=== PATIENT | female | born 1985 | race Caucasian/White ===

== ENCOUNTER 2020-07-25 19:47 | Emergency (ER) | payer SELFPAY ==
[2020-07-25 20:40] LABS: #Basophils 0.1 thou/uL (0.0-0.2); #Eosinphils 0.2 thou/uL (0.0-0.7); #Lymphocytes 4.8 thou/uL (1.20-3.40); #Monocytes 0.9 thou/uL (0.11-0.59); #Neutrophils 9.4 thou/uL (1.40-6.50); %Basophils 0.9 % (0.0-1.0); %Lymphocytes 31.4 % (21.0-51.0); %Monocytes 5.6 % (0.0-10.0); Hemoglobin 14.6 g/dL (12.0-16.0); Mean Corpuscular HGB CONC 31.3 g/dL (32.0-36.0); Mean Corpuscular Hemoglobin 30.2 pg (27.0-31.0); Mean Corpuscular Volume 96.3 fL (78.0-98.0); Mean Platelet Volume 10.1 fL (7.4-10.4); Platelet Count 137 thou/uL (130-400); RBC Distribution Width 12.2 % (11.5-14.5); Red Blood Cell (RBC) Count 4.83 mill/uL (4.20-5.40); White Blood Cell (WBC) Count 15.4 thou/uL (4.8-10.8)
[2020-07-25 20:53] LABS: Bilirubin Negative (Negative); Blood, Urine Small (Negative); Clarity Clear (Clear); Glucose, Urine (Dipstick) >=1000 mg/dL (Negative); Ketone, Urine Negative (Negative); Leukocyte Negative (Negative); Nitrite Negative (Negative); Protein, Urine (Dipstick) Negative (Neg-Trace); Specific Gravity, Urine 1.015 (1.005-1.030); Urobilinogen 0.2 mg/dL (Less than 2); pH, Urine 6.5 (5.0-9.0)
[2020-07-25 20:54] LABS: Pregnancy Test - Urine (BHCG) Negative (Negative); Pregu Control Background? CLEAR/WHITE (CLR/WHITE); Pregu Control Bar Appear? YES (CONTROL BAR); Specific Gravity 1.015 (1.002-1.036)
[2020-07-25 21:01] LABS: ALT (SGPT) 34 U/L (8-55); AST (SGOT) 17 U/L (5-34); Albumin 4.6 g/dL (3.5-5.0); Alkaline Phosphatase 87 U/L (40-110); Anion Gap 19 mmol/L (10-20); BUN (Urea Nitrogen) 12 mg/dL (7.0-18.7); Bilirubin, Total 0.3 mg/dL (0.2-1.2); Calc. Creatinine Clearance 0 mL/min (70-130); Calcium 10.4 mg/dL (7.8-10.44); Carbon Dioxide 20 mmol/L (22-29); Chloride 102 mmol/L (98-107); Estimated GFR-MDRD 77; Glucose 220 mg/dL (70-105); Potassium 4.3 mmol/L (3.5-5.1); Protein, Total 7.6 g/dL (6.0-8.3); Sodium 137 mmol/L (136-145)
[2020-07-25] MEDS ORDERED: Morphine 4 MG/ML VIAL ONE ×2 (21:04→22:17)
[2020-07-25] MEDS ORDERED: Ondansetron PF 4 MG/2 ML Vial ONE (21:04)
[2020-07-25] MEDS ORDERED: metroNIDAZOLE 500 MG/100 ML BAG ONE (21:04)
[2020-07-25] MEDS ORDERED: Sodium Chloride 0.9% 1,000 ML ONE (21:04)
[2020-07-25 21:14] LABS: RBC/HPF 0-3 HPF (0-3); Squamous Epithelial 0-3 HPF (0-3)
[2020-07-25 21:15] LABS: Yeast-Budding Rare HPF (None Seen)
--- NOTE | 2020-07-25 21:21 | CT ---
CT ABDOMEN AND PELVIS WITHOUT CONTRAST: 07/25/20 HISTORY: 34-year-old female with lower abdominal pain and history of bowel resection for diverticulitis. FINDINGS: There are no previous exams for comparison. The lung bases are clear. There are postop changes of cholecystectomy. There is diffuse fatty infiltr ation of the liver. A calcified granuloma is seen in the right lobe of the liver. No free air or free fluid is seen in the abdomen pelvis. No calculi noted in the kidneys, ureters, or the urinary bladd er. No hydroureteronephrosis is seen on either side. There are postop changes in the colon. There is colonic diverticulosis without evidence of diverticul itis. There are minimal degenerative change in the spine. IMPRESSION: 1. Fatty liver. 2. Colonic diverticulosis without diverticulitis. 3. No CT evidence of urinary tract calculi or obstruction. POS: MZA
== END 2020-07-25 22:26 | disposition home or self-care (01) ==
LOC: NAV ERS 19:47
DX: K57.92 Diverticulitis of intestine, part unspecified, without perforation or abscess without bleeding (principal); I10 Essential (primary) hypertension
CPT/HCPCS: 74176; 80053; 81003; 81015; 81025; 83605; 85025; 96365; 96375; 96376; J2270; J2405; J7050

== ENCOUNTER 2020-09-25 18:00 | Emergency (ER) | payer MEDICAID, SELFPAY ==
[2020-09-25 19:05] LABS: #Basophils 0.1 thou/uL (0.0-0.2); #Eosinphils 0.2 thou/uL (0.0-0.7); #Lymphocytes 3.7 thou/uL (1.20-3.40); #Monocytes 0.8 thou/uL (0.11-0.59); #Neutrophils 9.3 thou/uL (1.40-6.50); %Basophils 0.8 % (0.0-1.0); %Eosinophils 1.7 % (0.0-10.0); %Lymphocytes 26.4 % (21.0-51.0); %Monocytes 5.3 % (0.0-10.0); %Neutrophils 65.8 % (42.0-75.0); Hemoglobin 13.8 g/dL (12.0-16.0); Mean Corpuscular HGB CONC 32.5 g/dL (32.0-36.0); Mean Corpuscular Hemoglobin 30.7 pg (27.0-31.0); Mean Corpuscular Volume 94.6 fL (78.0-98.0); Mean Platelet Volume 7.4 fL (7.4-10.4); Platelet Count 312 thou/uL (130-400); RBC Distribution Width 11.4 % (11.5-14.5); Red Blood Cell (RBC) Count 4.49 mill/uL (4.20-5.40); White Blood Cell (WBC) Count 14.1 thou/uL (4.8-10.8)
[2020-09-25] MEDS ORDERED: Morphine 4 MG/ML VIAL ONE ×3 (19:07→22:01)
[2020-09-25] MEDS ORDERED: Promethazine HCl 25 MG/ML VIAL ONE (19:07)
[2020-09-25] MEDS ORDERED: Sodium Chloride 0.9% 1,000 ML ONE (19:07)
[2020-09-25 19:25] LABS: ALT (SGPT) 25 U/L (8-55); AST (SGOT) 15 U/L (5-34); Albumin 4.3 g/dL (3.5-5.0); Alkaline Phosphatase 77 U/L (40-110); Anion Gap 18 mmol/L (10-20); BUN (Urea Nitrogen) 16 mg/dL (7.0-18.7); Bilirubin, Total 0.4 mg/dL (0.2-1.2); Calc. Creatinine Clearance 0 mL/min (70-130); Calcium 9.3 mg/dL (7.8-10.44); Carbon Dioxide 22 mmol/L (22-29); Chloride 102 mmol/L (98-107); Estimated GFR-MDRD 79; Globulin 3.3 g/dL (2.4-3.5); Glucose 291 mg/dL (70-105); Potassium 3.5 mmol/L (3.5-5.1); Protein, Total 7.6 g/dL (6.0-8.3); Sodium 138 mmol/L (136-145)
[2020-09-25] MEDS ORDERED: Sodium Chloride 0.9% 100 ML ONE (19:52)
[2020-09-25] MEDS ORDERED: Piperacillin/Tazobactam 4.5 GM VIAL ONE (19:52)
--- NOTE | 2020-09-25 20:19 | CT ---
CT ABDOMEN NONCONTRAST CT PELVIS NONCONTRAST: (Urolithiasis protocol) DATE: 09/25/2020 7:46 PM HISTORY: 35-year-old female with left lower quadrant abdominal pain. COMPARISON: 09/19/2020 TECHNIQUE: IV injection of iodinated contrast media: None Oral contrast media: None FINDINGS: Other than for urolithiasis, the lack of IV and oral contrast limits the evaluation. Diffusely low hepatic attenuation consistent with fatty liver. Liver is enlarged. No renal, ureteral, or bladder calculus. No small bowel dilation, ascites, or pneumoperitoneum. Lung bases are clear. Diverticula are present throughout the ascending, transverse, and descending colon. Suture line at anastomosis in left lower quadrant of colon. No signs of diverticulitis or abscess. No hydronephrosis. Normal, thin camarena of urinary bladder. Moderately high attenuation of intraluminal contents of urinary bladder, 30 HU, suggestive of hematur ia. Within the limitations of a noncontrast scan, no abnormality identified involving spleen, adrenals, a bdominal aorta, or pancreas. Suture line at tip of cecum. Absent uterus. Clips in gallbladder fossa. No interval change. IMPRESSION: 1) moderately high attenuation of contents of urinary bladder, raising the possibility of hematuria. Recommend correlation with urinalysis. 2) no urolithiasis or obstructive uropathy. 3) hepatic steatosis 4) hepatomegaly 5) status post appendectomy, cholecystectomy, hysterectomy, and partial distal colonic resection. 6) pancolonic diverticulosis. No evidence of diverticulitis.
--- NOTE | 2020-09-25 21:02 | RAD ---
AP CHEST: 09/25/20 HISTORY: Fever. No evidence of infiltrate. Heart and mediastinum unremarkable. IMPRESSION: No acute finding identified. POS: AGW
[2020-09-25] MEDS ORDERED: Sodium Chloride 0.9% 500 ML ONE (21:05)
[2020-09-25 22:00] LABS: Bilirubin Negative (Negative); Blood, Urine Negative (Negative); Clarity Clear (Clear); Glucose, Urine (Dipstick) >=1000 mg/dL (Negative); Ketone, Urine Negative (Negative); Leukocyte Negative (Negative); Nitrite Negative (Negative); Protein, Urine (Dipstick) Negative (Neg-Trace); Urobilinogen 0.2 mg/dL (Less than 2)
== END 2020-09-25 22:05 | disposition short-term general hospital (02) ==
LOC: NAV ERS 18:00
DX: A41.9 Sepsis, unspecified organism (principal); R10.32 Left lower quadrant pain; I10 Essential (primary) hypertension; E11.9 Type 2 diabetes mellitus without complications; Z79.4 Long term (current) use of insulin; Z79.899 Other long term (current) drug therapy
CPT/HCPCS: 36415; 71045; 74176; 80053; 81003; 83605; 85025; 87040; 87149; 96365; 96367; 96375; 96376; J2270; J2543; J2550; J3370; J3490; J7030; J7050

== ENCOUNTER 2020-11-12 16:37 | Emergency (ER) | payer MEDICAID, OTHER ==
[2020-11-12] MEDS ORDERED: Promethazine HCl 25 MG/ML VIAL ONE (17:16)
[2020-11-12] MEDS ORDERED: Morphine 4 MG/ML VIAL ONE (17:16)
[2020-11-12] MEDS ORDERED: Sodium Chloride 0.9% 1,000 ML ONE (17:16)
[2020-11-12 17:26] LABS: #Basophils 0.1 thou/uL (0.0-0.2); #Eosinphils 0.2 thou/uL (0.0-0.7); #Lymphocytes 4.4 thou/uL (1.20-3.40); #Monocytes 0.9 thou/uL (0.11-0.59); #Neutrophils 10.1 thou/uL (1.40-6.50); %Basophils 0.9 % (0.0-1.0); %Eosinophils 1.1 % (0.0-10.0); %Lymphocytes 28.3 % (21.0-51.0); %Monocytes 5.5 % (0.0-10.0); %Neutrophils 64.3 % (42.0-75.0); Hemoglobin 14.6 g/dL (12.0-16.0); Mean Corpuscular HGB CONC 32.5 g/dL (32.0-36.0); Mean Corpuscular Hemoglobin 30.5 pg (27.0-31.0); Platelet Count 366 thou/uL (130-400); RBC Distribution Width 11.3 % (11.5-14.5); Red Blood Cell (RBC) Count 4.78 mill/uL (4.20-5.40); White Blood Cell (WBC) Count 15.7 thou/uL (4.8-10.8)
[2020-11-12 17:40] LABS: ALT (SGPT) 26 U/L (8-55); AST (SGOT) 19 U/L (5-34); Albumin 4.3 g/dL (3.5-5.0); Alkaline Phosphatase 99 U/L (40-110); Anion Gap 18 mmol/L (10-20); BUN (Urea Nitrogen) 15 mg/dL (7.0-18.7); Bilirubin, Total 0.3 mg/dL (0.2-1.2); Calc. Creatinine Clearance 0 mL/min (70-130); Calcium 9.5 mg/dL (7.8-10.44); Carbon Dioxide 23 mmol/L (22-29); Chloride 99 mmol/L (98-107); Globulin 3.6 g/dL (2.4-3.5); Glucose 238 mg/dL (70-105); Potassium 4.3 mmol/L (3.5-5.1); Protein, Total 7.9 g/dL (6.0-8.3); Sodium 136 mmol/L (136-145)
[2020-11-12 18:28] LABS: Amphetamine Not Detected (NotDetected); Barbiturates Screen Not Detected (NotDetected); Benzodiazepine Screen Not Detected (NotDetected); Cocaine Metabolite Screen Not Detected (NotDetected); Medtox Control Line Valid? VALID (VALID); Methadone Not Detected (NotDetected); Methamphetamine Not Detected (NotDetected); Opiate Screen Detected (NotDetected); Oxycodone Screen Not Detected (NotDetected); Phencyclidine (PCP) Not Detected (NotDetected); THC/Cannabinoid Screen Not Detected (NotDetected); Tricyclic Screen Not Detected (NotDetected)
[2020-11-12 18:30] LABS: Bilirubin Negative (Negative); Blood, Urine Negative (Negative); Clarity SL HAZY (Clear); Glucose, Urine (Dipstick) >=1000 mg/dL (Negative); Ketone, Urine Negative (Negative); Leukocyte Negative (Negative); Nitrite Negative (Negative); Protein, Urine (Dipstick) Negative (Neg-Trace); Specific Gravity, Urine 1.025 (1.005-1.030); Urobilinogen 0.2 mg/dL (Less than 2)
--- NOTE | 2020-11-12 19:14 | CT ---
CT ABDOMEN AND PELVIS WITHOUT CONTRAST: Date: 11-12-2020 PROVIDED CLINICAL HISTORY: Abdominal pain. FINDINGS: Comparison 09-25-2020. The visualized lung bases are free of significant opacity. There is diffuse fatty infiltration of the liver. The solid abdominal organs are suboptimally evaluat ed in the absence of IV contrast material but demonstrate an otherwise unremarkable unenhanced CT harry earance. There is no bowel dilation, inflammatory fat stranding, free fluid or free air apparent. The appendix is surgically absent, as is the gallbladder. There is extensive colonic diverticulosis. The osseous structures demonstrate no concerning lytic or blastic lesions. IMPRESSION: No evidence for an acute process. POS: GEORGINA
== END 2020-11-12 19:31 | disposition home or self-care (01) ==
LOC: NAV ERS 16:37
DX: R10.32 Left lower quadrant pain (principal); I10 Essential (primary) hypertension; E11.9 Type 2 diabetes mellitus without complications; Z87.891 Personal history of nicotine dependence; Z79.4 Long term (current) use of insulin; Z79.899 Other long term (current) drug therapy
CPT/HCPCS: 74176; 80053; 80306; 81003; 83605; 85025; 87040; 87086; 93005; 96365; 96366; 96375; J2270; J2550; J7050

== ENCOUNTER 2020-11-20 17:09 | Observation (INO) | payer MEDICAID ==
[2020-11-20] MEDS ORDERED: Morphine 4 MG/ML VIAL ONE ×2 (17:43→19:41)
[2020-11-20] MEDS ORDERED: Sodium Chloride 0.9% 100 ML ONE ×2 (17:44→18:59)
[2020-11-20] MEDS ORDERED: Sodium Chloride 0.9% 1,000 ML ONE (17:44)
[2020-11-20] MEDS ORDERED: Promethazine HCl 25 MG/ML VIAL ONE (17:44)
[2020-11-20 17:59] LABS: #Basophils 0.1 thou/uL (0.0-0.2); #Eosinphils 0.2 thou/uL (0.0-0.7); #Lymphocytes 3.8 thou/uL (1.20-3.40); #Monocytes 0.6 thou/uL (0.11-0.59); #Neutrophils 8.7 thou/uL (1.40-6.50); %Basophils 0.8 % (0.0-1.0); %Eosinophils 1.2 % (0.0-10.0); %Lymphocytes 28.6 % (21.0-51.0); %Monocytes 4.7 % (0.0-10.0); %Neutrophils 64.7 % (42.0-75.0); Hemoglobin 14.7 g/dL (12.0-16.0); Mean Corpuscular HGB CONC 32.5 g/dL (32.0-36.0); Mean Corpuscular Hemoglobin 30.6 pg (27.0-31.0); Mean Corpuscular Volume 94.2 fL (78.0-98.0); Mean Platelet Volume 7.1 fL (7.4-10.4); Platelet Count 330 thou/uL (130-400); RBC Distribution Width 11.6 % (11.5-14.5); Red Blood Cell (RBC) Count 4.78 mill/uL (4.20-5.40); White Blood Cell (WBC) Count 13.4 thou/uL (4.8-10.8)
[2020-11-20 18:14] LABS: ALT (SGPT) 31 U/L (8-55); AST (SGOT) 22 U/L (5-34); Albumin 4.5 g/dL (3.5-5.0); Alkaline Phosphatase 96 U/L (40-110); Anion Gap 20 mmol/L (10-20); BUN (Urea Nitrogen) 12 mg/dL (7.0-18.7); Bilirubin, Total 0.4 mg/dL (0.2-1.2); Calc. Creatinine Clearance 0 mL/min (70-130); Calcium 9.3 mg/dL (7.8-10.44); Carbon Dioxide 22 mmol/L (22-29); Chloride 101 mmol/L (98-107); Globulin 3.2 g/dL (2.4-3.5); Glucose 192 mg/dL (70-105); Potassium 4.7 mmol/L (3.5-5.1); Protein, Total 7.7 g/dL (6.0-8.3); Sodium 138 mmol/L (136-145)
--- NOTE | 2020-11-20 18:52 | CT ---
CT of abdomen and pelvis: 11/20/2020 COMPARISON: 11/12/2020 HISTORY: Abdominal pain TECHNIQUE: Axial CT imaging at 5 mm intervals from lung bases through pubic symphysis without contras t. Coronal reformatted imaging obtained. FINDINGS: Lack of contrast media limits assessment of the viscera, bowel, vascular structures, and fo r lymphadenopathy. The visualized lung bases are unremarkable. No free intraperitoneal air or fluid is seen. The hepatic parenchyma is diffusely hypodense consistent with steatosis. Cholecystectomy clips are present. The spleen is mildly enlarged. The pancreas and adrenal glands demonstrate no acute findings. No evid ence for nephrolithiasis or obstructive uropathy is seen on either side. The uterus appears surgically absent. There is extensive colonic diverticulosis with no evidence for diverticulitis. There is no evidence f or bowel obstruction. A colonic suture line is noted in the region of the sigmoid colon. The patient appears status post appendectomy. No acute osseous abnormality is seen. IMPRESSION: No nephrolithiasis or evidence of obstructive uropathy.
[2020-11-20] MEDS ORDERED: Piperacillin/Tazobactam 4.5 GM VIAL ONE (18:59)
[2020-11-20 19:37] LABS: Bilirubin Negative (Negative); Blood, Urine Negative (Negative); Clarity Clear (Clear); Glucose, Urine (Dipstick) >=1000 mg/dL (Negative); Ketone, Urine Negative (Negative); Leukocyte Negative (Negative); Nitrite Negative (Negative); Protein, Urine (Dipstick) Negative (Neg-Trace); Specific Gravity, Urine Greater/Equal 1.030 (1.005-1.030); Urobilinogen 0.2 mg/dL (Less than 2)
[2020-11-20 20:30] LABS: Lactic Acid 1.2 mmol/L (0.5-2.2)
[2020-11-20] MEDS ORDERED: Sodium Chloride 0.9% 500 ML ONE (20:44)
[2020-11-20 22:45] VITALS: BMI 50.5
[2020-11-20] MEDS ORDERED: Acetaminophen 325 MG TAB PO PRN (23:15)
[2020-11-20] MEDS: Sodium Chloride 0.9% 1,000 ML IV SCH (23:42)
[2020-11-20] MEDS: Morphine 4 MG/ML VIAL SLOW IVP PRN (23:43)
[2020-11-20] MEDS ORDERED: metroNIDAZOLE 500 MG in Premix Bag 1 BAG IVPB SCH (23:59)
[2020-11-21] MEDS: Morphine 4 MG/ML VIAL SLOW IVP PRN (04:54)
[2020-11-21] MEDS: Sodium Chloride 0.9% 1,000 ML IV SCH (04:54)
[2020-11-21] MEDS ORDERED: traMADol HCl 50 MG TAB PO PRN ×2 (05:37→17:41)
[2020-11-21] MEDS ORDERED: HumaLOG 300 UNITS/3 ML VIAL SC PRN (05:38)
[2020-11-21] MEDS ORDERED: Dextrose 50% Abboject 50 ML SYRINGE SLOW IVP PRN (05:38)
[2020-11-21] MEDS ORDERED: Piperacillin/Tazobactam 3.375 GM in Sodium Chloride 0.9% 100 ML IVPB SCH (06:00)
[2020-11-21] MEDS: metroNIDAZOLE 500 MG in Premix Bag 1 BAG IVPB SCH ×3 (06:13→21:07)
[2020-11-21] MEDS ORDERED: Lisinopril 10 MG TAB PO SCH (09:00)
[2020-11-21 10:42] LABS: SARS-CoV-2 NAA Rapid Test Not Detected (NotDetected)
[2020-11-21 19:41] VITALS: BP 116/63; TEMP 97.8
[2020-11-21] MEDS ORDERED: Lantus 1000 UNITS/10 ML VIAL SC SCH (21:00)
--- NOTE | 2020-11-22 05:33 | HP ---
SUBJECTIVE: The patient is an unfortunate 35-year-old female with a long history of recurrent diverticulitis, multiple episodes, in fact requiring partial colectomy several years ago. However, she has continued to have recurrent episodes of diverticulitis and has had a recent barium enema showing significant strictures and in need for probable repeat total sigmoid colectomy. She, however, has not had this scheduled because of COVID isolation and presents to the emergency room with a 3-day history of increasing abdominal pain. She was told by her surgeon to return to the emergency room as there was no elective admissions to the hospital . In the emergency room, she was found to have significantly tender abdomen. Vital signs elevated to a blood pressure 138/107, pulse 123, respirations 21, temperature is 97.9, and O2 saturation was 98%. She was evaluated and felt to have diverticulitis. She was given some IV morphine with relief of her symptoms and IV Phenergan as well and normal saline. She subsequently had laboratory evaluation, which showed her to have a white count of 13,400, hematocrit of 45, hemoglobin 14 with lactic acid initially of 2.1, but a CT scan showing diverticulosis with no obvious diverticulitis. Chest x-ray showed no infiltrates. Urinalysis was within normal limits and therefore, it was felt by the ER doctor that she most likely had a diverticulitis, but needs to be monitored for sepsis of unknown etiology because of elevated lactate and no obvious course. She was therefore admitted to the hospital, started on IV fluids, IV Levaquin and metronidazole. The patient states that she has required IV antibiotics for several days every other admission and could not be controlled initially on pills. PAST MEDICAL HISTORY: Otherwise remarkable for type 2 diabetes, well controlled and hypertension, well controlled. MEDICATIONS: She takes medications of Lantus 10 units subcu every evening and lisinopril 10 mg every evening and p.r.n. tramadol. PAST SURGICAL HISTORY: Positive for the above mentioned, partial colectomy. She has also had a hysterectomy, cholecystectomy, and appendectomy. SOCIAL HISTORY: She has not smoked for 10 years. She is not an alcohol user. ALLERGIES: SHE IS ALLERGIC TO AZITHROMYCIN, FENTANYL, IODINE, NITROFURANTOIN, ZOFRAN, STRAWBERRIES, SULFA. REVIEW OF SYSTEMS: HEENT: She denies headaches, dizziness, change in vision or hearing, hoarseness, or dysphagia. PULMONARY: She denies cough, sputum production, pneumonia, asthma, or tuberculosis. CARDIOVASCULAR: She denies chest pain, orthopnea, paroxysmal nocturnal dyspnea, or edema. GASTROINTESTINAL: She has recurrent abdominal pain in the left lower quadrant with no nausea, vomiting, and one episode of loose stools with no blood. GENITOURINARY: Denies dysuria, hematuria, or nocturia. MUSCULOSKELETAL: She has diffuse arthralgias. PHYSICAL EXAMINATION: VITAL SIGNS: Showed to have a temperature 97.5, pulse 87, respirations 20, O2 saturation 97% on room air, and blood pressure 117/79. HEENT: Pupils are equal, round, and reactive to light and accommodation. Sclerae are anicteric. Conjunctivae pale. Oral mucous membranes well hydrated. NECK: Supple. There are no nodes or masses. JVP is not elevated. LUNGS: Clear. CARDIAC: Showed regular rhythm. No gallops or murmurs. ABDOMEN: Obese with significant left lower quadrant tenderness. No rebound. There are good bowel sounds. SKIN/EXTREMITIES: Displayed no edema, clubbing, or cyanosis. NEUROLOGICAL: Intact. ASSESSMENT: Left lower quadrant pain, consistent with diverticulitis in a patient with recurrent history of diverticulitis and with possible early sepsis, so we will start her on IV Levaquin, metronidazole, IV fluids, and admit to the hospital. Her diabetes appears to be fairly well controlled on her Lantus 10 units, will be continued on this. She will be started on a heart healthy diet, diabetic diet. Will be continued on her lisinopril and blood pressure will be monitored closely. She will be treated with tramadol as needed for pain. She will be monitored closely for deterioration and possible need for another surgical evaluation. Job ID: [id number]
== END 2020-11-21 20:15 | disposition home or self-care (01) ==
LOC: NAV ERS 17:09 → NAV ACUTE 20:53
PROVIDERS: ADMIT Internal Medicine; ATTEND Internal Medicine
DX: R10.32 Left lower quadrant pain (principal); K57.30 Diverticulosis of large intestine without perforation or abscess without bleeding; E11.9 Type 2 diabetes mellitus without complications; I10 Essential (primary) hypertension; Z87.891 Personal history of nicotine dependence; Z79.4 Long term (current) use of insulin; Z79.899 Other long term (current) drug therapy; Z88.1 Allergy status to other antibiotic agents; Z88.2 Allergy status to sulfonamides; Z88.8 Allergy status to other drugs, medicaments and biological substances; Z91.018 Allergy to other foods; Z91.041 Radiographic dye allergy status; Z90.49 Acquired absence of other specified parts of digestive tract; Z20.822 Contact with and (suspected) exposure to COVID-19
CPT/HCPCS: 0240U; 36415; 36416; 74176; 80053; 81003; 83605; 84484; 85025; 87040; 87077; 87149; 96375; 96376; G0378; J1956; J2270; J2543; J2550; J3370; J3490; J7030; J7050

== ENCOUNTER 2021-01-25 13:17 | Emergency (ER) | payer OTHER ==
[2021-01-25] MEDS ORDERED: Morphine 4 MG/ML VIAL ONE ×2 (14:03→16:01)
[2021-01-25 14:12] LABS: #Basophils 0.1 thou/uL (0.0-0.2); #Eosinphils 0.1 thou/uL (0.0-0.7); #Lymphocytes 2.4 thou/uL (1.20-3.40); #Monocytes 0.5 thou/uL (0.11-0.59); #Neutrophils 8.5 thou/uL (1.40-6.50); %Basophils 0.6 % (0.0-1.0); %Eosinophils 1.1 % (0.0-10.0); %Lymphocytes 20.8 % (21.0-51.0); %Neutrophils 73.5 % (42.0-75.0); Hemoglobin 13.7 g/dL (12.0-16.0); Mean Corpuscular HGB CONC 32.8 g/dL (32.0-36.0); Mean Corpuscular Hemoglobin 30.3 pg (27.0-31.0); Mean Corpuscular Volume 92.3 fL (78.0-98.0); Mean Platelet Volume 7.4 fL (7.4-10.4); Platelet Count 277 thou/uL (130-400); RBC Distribution Width 11.7 % (11.5-14.5); Red Blood Cell (RBC) Count 4.54 mill/uL (4.20-5.40); White Blood Cell (WBC) Count 11.6 thou/uL (4.8-10.8)
[2021-01-25 14:32] LABS: ALT (SGPT) 22 U/L (8-55); AST (SGOT) 18 U/L (5-34); Albumin 4.2 g/dL (3.5-5.0); Alkaline Phosphatase 95 U/L (40-110); Anion Gap 16 mmol/L (10-20); BUN (Urea Nitrogen) 13 mg/dL (7.0-18.7); Bilirubin, Total 0.3 mg/dL (0.2-1.2); Calc. Creatinine Clearance 0 mL/min (70-130); Calcium 9.3 mg/dL (7.8-10.44); Carbon Dioxide 22 mmol/L (22-29); Chloride 105 mmol/L (98-107); Globulin 2.9 g/dL (2.4-3.5); Glucose 210 mg/dL (70-105); Lipase 29 U/L (8-78); Potassium 4.4 mmol/L (3.5-5.1); Protein, Total 7.1 g/dL (6.0-8.3); Sodium 139 mmol/L (136-145)
[2021-01-25] MEDS ORDERED: metroNIDAZOLE 500 MG TAB ONE (17:10)
[2021-01-25] MEDS ORDERED: Cipro 250 MG TAB ONE (17:10)
== END 2021-01-25 17:30 | disposition home or self-care (01) ==
LOC: NAV ERS 13:17
DX: K57.92 Diverticulitis of intestine, part unspecified, without perforation or abscess without bleeding (principal); I10 Essential (primary) hypertension; E11.9 Type 2 diabetes mellitus without complications; Z87.891 Personal history of nicotine dependence; Z79.4 Long term (current) use of insulin; Z79.899 Other long term (current) drug therapy
CPT/HCPCS: 74176; 80053; 83605; 83690; 85025; 96374; 96376; J2270

== ENCOUNTER 2021-03-02 15:15 | Emergency (ER) | payer OTHER ==
[2021-03-02] MEDS ORDERED: Morphine 4 MG/ML VIAL ONE ×3 (15:52→19:39)
[2021-03-02] MEDS ORDERED: Sodium Chloride 0.9% 1,000 ML ONE ×2 (15:53→17:16)
[2021-03-02] MEDS ORDERED: Promethazine HCl 25 MG/ML VIAL ONE (15:53)
[2021-03-02 15:54] LABS: ALT (SGPT) 19 U/L (8-55); AST (SGOT) 13 U/L (5-34); Albumin 4.3 g/dL (3.5-5.0); Alkaline Phosphatase 96 U/L (40-110); Anion Gap 17 mmol/L (10-20); BUN (Urea Nitrogen) 15 mg/dL (7.0-18.7); Bilirubin, Total 0.3 mg/dL (0.2-1.2); Calc. Creatinine Clearance 0 mL/min (70-130); Calcium 9.4 mg/dL (7.8-10.44); Carbon Dioxide 21 mmol/L (22-29); Chloride 104 mmol/L (98-107); Globulin 3.7 g/dL (2.4-3.5); Glucose 229 mg/dL (70-105); Potassium 4.2 mmol/L (3.5-5.1); Sodium 138 mmol/L (136-145)
[2021-03-02 15:56] LABS: #Basophils 0.1 thou/uL (0.0-0.2); #Eosinphils 0.2 thou/uL (0.0-0.7); #Lymphocytes 3.5 thou/uL (1.20-3.40); #Monocytes 0.7 thou/uL (0.11-0.59); #Neutrophils 9.5 thou/uL (1.40-6.50); %Basophils 0.9 % (0.0-1.0); %Eosinophils 1.3 % (0.0-10.0); %Lymphocytes 24.7 % (21.0-51.0); %Monocytes 5.2 % (0.0-10.0); %Neutrophils 67.9 % (42.0-75.0); Mean Corpuscular HGB CONC 31.4 g/dL (32.0-36.0); Mean Corpuscular Hemoglobin 29.4 pg (27.0-31.0); Mean Corpuscular Volume 93.6 fL (78.0-98.0); Mean Platelet Volume 7.5 fL (7.4-10.4); Platelet Count 292 thou/uL (130-400); RBC Distribution Width 11.6 % (11.5-14.5); Red Blood Cell (RBC) Count 4.75 mill/uL (4.20-5.40); White Blood Cell (WBC) Count 14.1 thou/uL (4.8-10.8)
[2021-03-02 16:12] LABS: Bilirubin Negative (Negative); Blood, Urine Trace (Negative); Clarity Clear (Clear); Glucose, Urine (Dipstick) >=1000 mg/dL (Negative); Ketone, Urine Negative (Negative); Leukocyte Negative (Negative); Nitrite Negative (Negative); Protein, Urine (Dipstick) Negative (Neg-Trace); Specific Gravity, Urine 1.025 (1.005-1.030); Urobilinogen 0.2 mg/dL (Less than 2); pH, Urine 5.5 (5.0-9.0)
[2021-03-02 16:24] LABS: RBC/HPF None Seen HPF (0-3); Squamous Epithelial 0-3 HPF (0-3)
[2021-03-02] MEDS ORDERED: Piperacillin/Tazobactam 4.5 GM VIAL ONE (17:16)
[2021-03-02] MEDS ORDERED: Sodium Chloride 0.9% 100 ML ONE (17:18)
[2021-03-02] MEDS ORDERED: Ketorolac Tromethamine 30 MG/ML VIAL ONE (18:32)
== END 2021-03-02 20:18 | disposition short-term general hospital (02) ==
LOC: NAV ERS 15:15
DX: K52.9 Noninfective gastroenteritis and colitis, unspecified (principal); K62.89 Other specified diseases of anus and rectum; I10 Essential (primary) hypertension; E11.9 Type 2 diabetes mellitus without complications; Z87.891 Personal history of nicotine dependence
CPT/HCPCS: 74176; 80053; 81003; 81015; 82274; 83605; 85025; 87040; 96365; 96366; 96367; 96375; 96376; J1885; J2270; J2543; J2550; J3370; J3490; J7050

== ENCOUNTER 2021-03-16 03:36 | Emergency (ER) | payer OTHER | END 2021-03-16 04:21 | disposition home or self-care (01) | LOC: NAV ERS 03:36 | DX: M79.631 Pain in right forearm (principal); I10 Essential (primary) hypertension; E11.9 Type 2 diabetes mellitus without complications; Z87.891 Personal history of nicotine dependence | CPT/HCPCS: 99283 ==

== ENCOUNTER 2021-03-17 16:25 | Emergency (ER) | payer OTHER | END 2021-03-17 17:31 | disposition short-term general hospital (02) | LOC: NAV ERS 16:25 | DX: I80.8 Phlebitis and thrombophlebitis of other sites (principal); I10 Essential (primary) hypertension; E11.9 Type 2 diabetes mellitus without complications; Z87.891 Personal history of nicotine dependence | CPT/HCPCS: 99284 ==

== ENCOUNTER 2021-04-05 15:17 | Emergency (ER) | payer OTHER ==
[2021-04-05] MEDS ORDERED: Sodium Chloride 0.9% 1,000 ML ONE ×2 (15:48→17:19)
[2021-04-05] MEDS ORDERED: Promethazine HCl 25 MG/ML VIAL ONE (15:54)
[2021-04-05] MEDS ORDERED: Morphine 4 MG/ML VIAL ONE ×2 (15:55→17:19)
[2021-04-05 16:02] LABS: #Basophils 0.1 thou/uL (0.0-0.2); #Eosinphils 0.1 thou/uL (0.0-0.7); #Lymphocytes 3.3 thou/uL (1.20-3.40); #Monocytes 0.7 thou/uL (0.11-0.59); #Neutrophils 9.3 thou/uL (1.40-6.50); %Basophils 0.7 % (0.0-1.0); %Lymphocytes 24.3 % (21.0-51.0); %Monocytes 5.4 % (0.0-10.0); %Neutrophils 68.6 % (42.0-75.0); Hemoglobin 13.2 g/dL (12.0-16.0); Mean Corpuscular HGB CONC 30.7 g/dL (32.0-36.0); Mean Corpuscular Hemoglobin 28.7 pg (27.0-31.0); Mean Corpuscular Volume 93.4 fL (78.0-98.0); Mean Platelet Volume 7.9 fL (7.4-10.4); Platelet Count 306 thou/uL (130-400); RBC Distribution Width 12.1 % (11.5-14.5); Red Blood Cell (RBC) Count 4.59 mill/uL (4.20-5.40); White Blood Cell (WBC) Count 13.6 thou/uL (4.8-10.8)
[2021-04-05 16:09] LABS: ALT (SGPT) 22 U/L (8-55); AST (SGOT) 15 U/L (5-34); Albumin 4.1 g/dL (3.5-5.0); Alkaline Phosphatase 99 U/L (40-110); Anion Gap 16 mmol/L (10-20); BUN (Urea Nitrogen) 14 mg/dL (7.0-18.7); Bilirubin, Total 0.3 mg/dL (0.2-1.2); Calc. Creatinine Clearance 0 mL/min (70-130); Calcium 9.1 mg/dL (7.8-10.44); Carbon Dioxide 22 mmol/L (22-29); Chloride 103 mmol/L (98-107); Globulin 3.3 g/dL (2.4-3.5); Glucose 276 mg/dL (70-105); Lipase 33 U/L (8-78); Potassium 4.1 mmol/L (3.5-5.1); Protein, Total 7.4 g/dL (6.0-8.3); Sodium 137 mmol/L (136-145)
[2021-04-05 16:16] LABS: Bilirubin Negative (Negative); Blood, Urine Negative (Negative); Clarity Clear (Clear); Glucose, Urine (Dipstick) >=1000 mg/dL (Negative); Ketone, Urine Negative (Negative); Leukocyte Negative (Negative); Nitrite Negative (Negative); Protein, Urine (Dipstick) Negative (Neg-Trace); Urobilinogen 0.2 mg/dL (Less than 2); pH, Urine 5.5 (5.0-9.0)
[2021-04-05] MEDS ORDERED: Ciprofloxacin Lactate/D5W 400 mg/200 ml Premix ONE (17:19)
[2021-04-05] MEDS ORDERED: metroNIDAZOLE 500 MG/100 ML BAG ONE (17:19)
[2021-04-05] MEDS ORDERED: traMADol HCl 50 MG TAB ONE (18:48)
== END 2021-04-05 18:52 | disposition home or self-care (01) ==
LOC: NAV ERS 15:17
DX: K57.32 Diverticulitis of large intestine without perforation or abscess without bleeding (principal); E11.9 Type 2 diabetes mellitus without complications; I10 Essential (primary) hypertension; Z87.891 Personal history of nicotine dependence
CPT/HCPCS: 74176; 80053; 81003; 83605; 83690; 85025; 96365; 96367; 96368; 96375; 96376; J0744; J2270; J2550; J7050

== ENCOUNTER 2021-04-06 19:12 | Emergency (ER) | payer OTHER ==
[2021-04-06] MEDS ORDERED: Morphine 4 MG/ML VIAL ONE ×2 (20:34→22:09)
[2021-04-06] MEDS ORDERED: Ondansetron PF 4 MG/2 ML Vial ONE (20:34)
[2021-04-06 20:45] LABS: #Basophils 0.1 thou/uL (0.0-0.2); #Eosinphils 0.2 thou/uL (0.0-0.7); #Lymphocytes 3.8 thou/uL (1.20-3.40); #Monocytes 0.8 thou/uL (0.11-0.59); #Neutrophils 7.9 thou/uL (1.40-6.50); %Basophils 0.6 % (0.0-1.0); %Eosinophils 1.5 % (0.0-10.0); %Lymphocytes 29.6 % (21.0-51.0); %Monocytes 6.1 % (0.0-10.0); %Neutrophils 62.2 % (42.0-75.0); Hemoglobin 12.6 g/dL (12.0-16.0); Mean Corpuscular Volume 93.7 fL (78.0-98.0); Mean Platelet Volume 7.1 fL (7.4-10.4); Platelet Count 305 thou/uL (130-400); RBC Distribution Width 11.8 % (11.5-14.5); Red Blood Cell (RBC) Count 4.34 mill/uL (4.20-5.40); White Blood Cell (WBC) Count 12.7 thou/uL (4.8-10.8)
[2021-04-06 21:05] LABS: ALT (SGPT) 24 U/L (8-55); AST (SGOT) 18 U/L (5-34); Albumin 3.9 g/dL (3.5-5.0); Alkaline Phosphatase 87 U/L (40-110); Anion Gap 16 mmol/L (10-20); BUN (Urea Nitrogen) 13 mg/dL (7.0-18.7); Bilirubin, Total 0.3 mg/dL (0.2-1.2); Calc. Creatinine Clearance 0 mL/min (70-130); Calcium 9.3 mg/dL (7.8-10.44); Carbon Dioxide 25 mmol/L (22-29); Chloride 102 mmol/L (98-107); Glucose 173 mg/dL (70-105); Lipase 25 U/L (8-78); Protein, Total 6.9 g/dL (6.0-8.3); Sodium 139 mmol/L (136-145)
[2021-04-06] MEDS ORDERED: Sodium Chloride 0.9% 1,000 ML ONE (21:27)
[2021-04-06 21:32] LABS: Bilirubin Negative (Negative); Blood, Urine Negative (Negative); Clarity Clear (Clear); Glucose, Urine (Dipstick) 500 mg/dL (Negative); Ketone, Urine Negative (Negative); Leukocyte Negative (Negative); Nitrite Negative (Negative); Protein, Urine (Dipstick) Negative (Neg-Trace); Urobilinogen 0.2 mg/dL (Less than 2)
[2021-04-06] MEDS ORDERED: Ciprofloxacin Lactate/D5W 400 mg/200 ml Premix ONE (22:37)
== END 2021-04-06 23:55 | disposition home or self-care (01) ==
LOC: NAV ERS 19:12
DX: K57.32 Diverticulitis of large intestine without perforation or abscess without bleeding (principal); I10 Essential (primary) hypertension; D72.829 Elevated white blood cell count, unspecified; E11.9 Type 2 diabetes mellitus without complications; Z87.891 Personal history of nicotine dependence
CPT/HCPCS: 74176; 80053; 81003; 83690; 85025; 93005; 94760; 96365; 96375; 96376; J0744; J2270; J2405; J7050

== ENCOUNTER 2023-11-23 12:19 | Emergency (ER) | payer BC ==
[2023-11-23 13:19] LABS: Bilirubin Negative (Negative); Blood, Urine Trace (Negative); Clarity Clear (Clear); Glucose, Urine (Dipstick) >=1000 mg/dL (Negative); Ketone, Urine Negative (Negative); Leukocyte Negative (Negative); Nitrite Negative (Negative); Protein, Urine (Dipstick) Negative (Neg-Trace); Urobilinogen 0.2 mg/dL (Less than 2); pH, Urine 5.5 (5.0-9.0)
[2023-11-23] MEDS ORDERED: Morphine 4 MG/ML VIAL ONE (13:20)
[2023-11-23] MEDS ORDERED: Sodium Chloride 0.9% 1,000 ML ONE ×2 (13:20→15:14)
[2023-11-23] MEDS ORDERED: Metoclopramide HCl 10 MG (2 mL) VIAL ONE (13:20)
[2023-11-23 13:23] LABS: #Basophils 0.1 thou/uL (0.0-0.2); #Eosinphils 0.1 thou/uL (0.0-0.7); #Monocytes 0.7 thou/uL (0.11-0.59); #Neutrophils 9.5 thou/uL (1.40-6.50); %Basophils 0.6 % (0.0-1.0); %Eosinophils 0.6 % (0.0-10.0); %Lymphocytes 22.2 % (21.0-51.0); %Neutrophils 71.6 % (42.0-75.0); Hematocrit 50.9 % (36.0-47.0); Mean Corpuscular HGB CONC 33.4 g/dL (32.0-36.0); Mean Corpuscular Hemoglobin 30.8 pg (27.0-31.0); Mean Corpuscular Volume 92.3 fl (78.0-98.0); Mean Platelet Volume 8.3 fL (7.4-10.4); Platelet Count 334 10x3/uL (130-400); RBC Distribution Width 10.7 % (11.5-14.5); Red Blood Cell (RBC) Count 5.51 mill/uL (4.20-5.40); White Blood Cell (WBC) Count 13.3 10x3/uL (4.8-10.8)
[2023-11-23 13:25] LABS: RBC/HPF 0-3 HPF (0-3); Squamous Epithelial 0-3 HPF (0-3)
[2023-11-23 13:43] LABS: ALT (SGPT) 41 U/L (8-55); AST (SGOT) 24 U/L (5-34); Albumin 4.8 g/dL (3.5-5.0); Alkaline Phosphatase 105 U/L (40-110); Anion Gap 18 mmol/L (10-20); BUN (Urea Nitrogen) 14 mg/dL (7.0-18.7); Bilirubin, Total 0.5 mg/dL (0.2-1.2); Calc. Creatinine Clearance 0 mL/min (70-130); Calcium 10.3 mg/dL (7.8-10.44); Carbon Dioxide 21 mmol/L (22-29); Chloride 98 mmol/L (98-107); Estimated GFR 81; Globulin 3.9 g/dL (2.4-3.5); Glucose 390 mg/dL (70-105); Lipase 43 U/L (8-78); Potassium 4.9 mmol/L (3.5-5.1); Protein, Total 8.7 g/dL (6.0-8.3); Sodium 132 mmol/L (136-145)
[2023-11-23] MEDS ORDERED: metFORMIN 500 MG TAB ONE (16:35)
[2023-11-23] MEDS ORDERED: Gabapentin 100 MG CAP ONE ×2 (16:35→23:25)
[2023-11-23] MEDS ORDERED: metroNIDAZOLE 500 MG (100 mL) BAG ONE (16:36)
[2023-11-23] MEDS ORDERED: LevoFLOXacin D5W 500 mg (100 mL) BAG ONE (16:36)
[2023-11-23] MEDS ORDERED: Morphine 2 MG/ML VIAL ONE (17:59)
[2023-11-23] MEDS ORDERED: Methocarbamol 500 MG TAB ONE ×2 (23:25→23:36)
[2023-11-23] MEDS ORDERED: Ketorolac Tromethamine 60 MG/2 ML VIAL ONE (23:27)
[2023-11-24] MEDS ORDERED: Morphine 2 MG/ML VIAL ONE ×3 (03:00→11:57)
[2023-11-24] MEDS ORDERED: metroNIDAZOLE 500 MG (100 mL) BAG ONE (08:03)
[2023-11-24] MEDS ORDERED: metFORMIN 500 MG TAB ONE (08:03)
[2023-11-24 08:04] LABS: Anion Gap 16 mmol/L (10-20); Globulin 2.9 g/dL (2.4-3.5)
[2023-11-24 08:06] LABS: Calcium 8.7 mg/dL (7.8-10.44)
[2023-11-24 08:07] LABS: ALT (SGPT) 38 U/L (8-55); AST (SGOT) 36 U/L (5-34); Albumin 3.9 g/dL (3.5-5.0); Alkaline Phosphatase 84 U/L (40-110); BUN (Urea Nitrogen) 13 mg/dL (7.0-18.7); Bilirubin, Total 0.6 mg/dL (0.2-1.2); Calc. Creatinine Clearance 0 mL/min (70-130); Carbon Dioxide 20 mmol/L (22-29); Chloride 105 mmol/L (98-107); Estimated GFR 102; Glucose 211 mg/dL (70-105); Potassium 4.7 mmol/L (3.5-5.1); Protein, Total 6.8 g/dL (6.0-8.3); Sodium 136 mmol/L (136-145)
[2023-11-24 08:32] LABS: #Basophils 0.1 thou/uL (0.0-0.2); #Eosinphils 0.1 thou/uL (0.0-0.7); #Lymphocytes 2.5 thou/uL (1.20-3.40); #Monocytes 0.5 thou/uL (0.11-0.59); #Neutrophils 5.8 thou/uL (1.40-6.50); %Basophils 1.2 % (0.0-1.0); %Eosinophils 1.5 % (0.0-10.0); %Monocytes 5.6 % (0.0-10.0); %Neutrophils 63.7 % (42.0-75.0); Hematocrit 44.2 % (36.0-47.0); Hemoglobin 14.7 g/dL (12.0-16.0); Mean Corpuscular HGB CONC 33.2 g/dL (32.0-36.0); Mean Corpuscular Hemoglobin 30.8 pg (27.0-31.0); Mean Corpuscular Volume 92.8 fl (78.0-98.0); Mean Platelet Volume 7.9 fL (7.4-10.4); Platelet Count 254 10x3/uL (130-400); RBC Distribution Width 10.9 % (11.5-14.5); Red Blood Cell (RBC) Count 4.77 mill/uL (4.20-5.40)
[2023-11-24] MEDS ORDERED: Sodium Chloride 0.9% 1,000 ML ONE (08:40)
[2023-11-24] MEDS ORDERED: Dextrose 5 %-0.45 % NaCl 1,000 ML ONE (10:09)
== END 2023-11-23 14:10 | disposition short-term general hospital (02) ==
LOC: NAV ERS 12:19
DX: R10.32 Left lower quadrant pain (principal); Z87.19 Personal history of other diseases of the digestive system; R00.0 Tachycardia, unspecified; E11.65 Type 2 diabetes mellitus with hyperglycemia; Z87.891 Personal history of nicotine dependence; Z79.84 Long term (current) use of oral hypoglycemic drugs; Z79.899 Other long term (current) drug therapy
CPT/HCPCS: 36416; 74176; 80053; 81001; 83605; 83690; 83735; 85025; 96361; 96365; 96366; 96375; 96376; J1885; J1956; J2270; J2272; J2765; J7042; J7050

== ENCOUNTER 2023-12-30 18:12 | Emergency (ER) | payer BC ==
[2023-12-30 18:49] LABS: Bilirubin Negative (Negative); Blood, Urine Negative (Negative); Clarity Clear (Clear); Glucose, Urine (Dipstick) >=1000 mg/dL (Negative); Ketone, Urine Negative (Negative); Leukocyte Negative (Negative); Nitrite Negative (Negative); Protein, Urine (Dipstick) Negative (Neg-Trace); Urobilinogen 0.2 mg/dL (Less than 2)
[2023-12-30 18:57] LABS: BHCG - Serum Negative (NEGATIVE); Pregs Control Bar Appear? YES (CONTROL BAR)
[2023-12-30 19:01] LABS: CAUTI Indications for Culture Dysuria,urgency,freq; Squamous Epithelial 0-3 HPF (0-3); Urine Culture Reflex No No; WBC/HPF 0-3 HPF (0-3)
[2023-12-30] MEDS ORDERED: Ketorolac Tromethamine 30 MG (1 mL) VIAL ONE (19:05)
[2023-12-30] MEDS ORDERED: Sodium Chloride 0.9% 1,000 ML ONE ×2 (19:05→19:52)
[2023-12-30] MEDS ORDERED: Morphine 4 MG/ML VIAL ONE ×2 (19:05→20:08)
[2023-12-30 19:08] LABS: #Basophils 0.2 thou/uL (0.0-0.2); #Eosinphils 0.1 thou/uL (0.0-0.7); #Lymphocytes 4.2 thou/uL (1.20-3.40); #Monocytes 1.1 thou/uL (0.11-0.59); #Neutrophils 10.3 thou/uL (1.40-6.50); %Basophils 1.4 % (0.0-1.0); %Eosinophils 0.8 % (0.0-10.0); %Neutrophils 64.8 % (42.0-75.0); Hematocrit 38.2 % (36.0-47.0); Hemoglobin 13.7 g/dL (12.0-16.0); Mean Corpuscular HGB CONC 35.9 g/dL (32.0-36.0); Mean Corpuscular Hemoglobin 32.3 pg (27.0-31.0); Mean Corpuscular Volume 90.1 fl (78.0-98.0); Mean Platelet Volume 7.7 fL (7.4-10.4); Platelet Count 277 10x3/uL (130-400); RBC Distribution Width 10.9 % (11.5-14.5); Red Blood Cell (RBC) Count 4.24 mill/uL (4.20-5.40); White Blood Cell (WBC) Count 15.9 10x3/uL (4.8-10.8)
[2023-12-30 19:15] LABS: ALT (SGPT) 25 U/L (8-55); AST (SGOT) 14 U/L (5-34); Albumin 4.1 g/dL (3.5-5.0); Alkaline Phosphatase 87 U/L (40-110); Anion Gap 17 mmol/L (10-20); BUN (Urea Nitrogen) 12 mg/dL (7.0-18.7); Bilirubin, Total 0.5 mg/dL (0.2-1.2); Calc. Creatinine Clearance 0 mL/min (70-130); Carbon Dioxide 22 mmol/L (22-29); Chloride 93 mmol/L (98-107); Estimated GFR 88; Globulin 3.2 g/dL (2.4-3.5); Lipase 34 U/L (8-78); Potassium 4.2 mmol/L (3.5-5.1); Protein, Total 7.3 g/dL (6.0-8.3); Sodium 128 mmol/L (136-145)
[2023-12-30] MEDS ORDERED: Sodium Chloride 0.9% 100 ML ONE (19:52)
[2023-12-30] MEDS ORDERED: Piperacillin/Tazobactam 4.5 GM VIAL ONE (19:52)
[2023-12-30] MEDS ORDERED: Insulin Regular 300 UNITS/3 ML VIAL ONE (19:59)
[2023-12-31 12:47] LABS: Glucose 467 mg/dL (70-105)
== END 2023-12-30 21:25 | disposition home or self-care (01) ==
LOC: NAV ERS 18:12
DX: K57.30 Diverticulosis of large intestine without perforation or abscess without bleeding (principal); E11.9 Type 2 diabetes mellitus without complications; Z87.891 Personal history of nicotine dependence; Z79.84 Long term (current) use of oral hypoglycemic drugs; Z79.899 Other long term (current) drug therapy
CPT/HCPCS: 74176; 80053; 81001; 83605; 83690; 84703; 85025; 87040; 96361; 96365; 96375; 96376; J1815; J1885; J2270; J2543; J3490; J7050

== ENCOUNTER 2023-12-31 17:52 | Emergency (ER) | payer BC, MEDICAID ==
[2023-12-31] MEDS ORDERED: Piperacillin/Tazobactam 4.5 GM VIAL ONE (18:23)
[2023-12-31] MEDS ORDERED: Sodium Chloride 0.9% 1,000 ML ONE ×2 (18:23→19:52)
[2023-12-31] MEDS ORDERED: Morphine 4 MG/ML VIAL ONE ×2 (18:23→20:31)
[2023-12-31 18:38] LABS: #Basophils 0.1 thou/uL (0.0-0.2); #Eosinphils 0.2 thou/uL (0.0-0.7); #Lymphocytes 3.4 thou/uL (1.20-3.40); #Monocytes 0.7 thou/uL (0.11-0.59); #Neutrophils 5.6 thou/uL (1.40-6.50); %Basophils 0.9 % (0.0-1.0); %Eosinophils 1.7 % (0.0-10.0); %Lymphocytes 34.2 % (21.0-51.0); %Monocytes 6.6 % (0.0-10.0); %Neutrophils 56.6 % (42.0-75.0); Hematocrit 37.4 % (36.0-47.0); Mean Corpuscular HGB CONC 34.7 g/dL (32.0-36.0); Mean Corpuscular Hemoglobin 31.6 pg (27.0-31.0); Mean Platelet Volume 7.8 fL (7.4-10.4); Platelet Count 269 10x3/uL (130-400); RBC Distribution Width 10.8 % (11.5-14.5); Red Blood Cell (RBC) Count 4.11 mill/uL (4.20-5.40); White Blood Cell (WBC) Count 9.8 10x3/uL (4.8-10.8)
[2023-12-31 18:53] LABS: Sodium 133 mmol/L (136-145)
[2023-12-31 18:54] LABS: Albumin 4.1 g/dL (3.5-5.0); Anion Gap 17 mmol/L (10-20); Carbon Dioxide 22 mmol/L (22-29); Chloride 98 mmol/L (98-107); Potassium 4.4 mmol/L (3.5-5.1)
[2023-12-31 18:55] LABS: ALT (SGPT) 53 U/L (8-55); AST (SGOT) 31 U/L (5-34); Alkaline Phosphatase 95 U/L (40-110); BUN (Urea Nitrogen) 12 mg/dL (7.0-18.7); Bilirubin, Total 0.4 mg/dL (0.2-1.2); Calc. Creatinine Clearance 0 mL/min (70-130); Calcium 9.4 mg/dL (7.6-10.4); Estimated GFR 82; Globulin 3.5 g/dL (2.4-3.5); Glucose 386 mg/dL (70-105); Protein, Total 7.6 g/dL (6.0-8.3)
[2023-12-31 20:29] LABS: Bilirubin Negative (Negative); Blood, Urine Negative (Negative); Clarity Clear (Clear); Glucose, Urine (Dipstick) >=1000 mg/dL (Negative); Ketone, Urine Negative (Negative); Leukocyte Negative (Negative); Nitrite Negative (Negative); Protein, Urine (Dipstick) Negative (Neg-Trace); Urobilinogen 0.2 mg/dL (Less than 2); pH, Urine 5.5 (5.0-9.0)
[2023-12-31 20:30] LABS: Squamous Epithelial 0-3 HPF (0-3); Yeast-Budding Rare HPF (None Seen)
[2023-12-31] MEDS ORDERED: Ketorolac Tromethamine 30 MG (1 mL) VIAL ONE (20:31)
== END 2023-12-31 20:42 | disposition short-term general hospital (02) ==
LOC: NAV ERS 17:52
DX: K57.92 Diverticulitis of intestine, part unspecified, without perforation or abscess without bleeding (principal); E11.40 Type 2 diabetes mellitus with diabetic neuropathy, unspecified; Z87.891 Personal history of nicotine dependence
CPT/HCPCS: 36415; 80053; 81001; 83605; 85025; 96361; 96365; 96375; 96376; J1885; J2270; J2543; J7050

== ENCOUNTER 2024-03-16 17:12 | Emergency (ER) | payer BC, OTHER | END 2024-03-16 17:58 | disposition home or self-care (01) | LOC: NAV ERS 17:12 | DX: K04.7 Periapical abscess without sinus (principal); E11.40 Type 2 diabetes mellitus with diabetic neuropathy, unspecified; Z87.891 Personal history of nicotine dependence; Z79.84 Long term (current) use of oral hypoglycemic drugs; Z79.899 Other long term (current) drug therapy | CPT/HCPCS: 99282 ==

== ENCOUNTER 2024-04-17 18:06 | Emergency (ER) | payer BC, OTHER ==
[2024-04-17] MEDS ORDERED: Morphine 4 MG/ML VIAL ONE (18:37)
[2024-04-17] MEDS ORDERED: traMADol HCl 50 MG TAB ONE (19:06)
== END 2024-04-17 19:41 | disposition home or self-care (01) ==
LOC: NAV ERS 18:06
DX: G89.29 Other chronic pain (principal); E11.40 Type 2 diabetes mellitus with diabetic neuropathy, unspecified; Z79.891 Long term (current) use of opiate analgesic; Z79.84 Long term (current) use of oral hypoglycemic drugs
CPT/HCPCS: 96361; 96374; J2270

== ENCOUNTER 2024-05-11 16:36 | Emergency (ER) | payer BC, OTHER | END 2024-05-11 17:05 | disposition left against medical advice (07) | LOC: NAV ERS 16:36 | DX: R10.32 Left lower quadrant pain (principal); E11.40 Type 2 diabetes mellitus with diabetic neuropathy, unspecified; Z79.84 Long term (current) use of oral hypoglycemic drugs; Z79.891 Long term (current) use of opiate analgesic | CPT/HCPCS: 99283 ==